=== PATIENT | male | born 1995 | race Caucasian/White ===

== ENCOUNTER 2017-04-26 21:47 | Emergency (ER) | payer OTHER ==
[~2017-04-26] VITALS: Ht 175.3 cm; Wt 63.5 kg
[2017-04-26 21:51] VITALS: BP 119/81
[2017-04-26] MEDS ORDERED: FLUORESCEIN SOD 1 MG 1 EA STRP ONE (21:51)
[2017-04-26] MEDS ORDERED: PROPARACAINE 0.5% OP 15ML BTL ONE (21:51)
--- NOTE | 2017-04-26 21:53 | ER Report ---
History and Physical Time Seen By MD: 21:48 HPI/ROS CHIEF COMPLAINT: Right eye injury HISTORY OF PRESENT ILLNESS: 21-year-old male presents ambulatory to the ER. He was playing basketball when he was poked in the right eye. He has significant eye pain. He is barely able to open due to the severity of the pain. He has vision that's intact. Grossly injected. He feels better with proparacaine drops in. Visual acuity was performed. Patient has intact vision. REVIEW OF SYSTEMS: Respiratory: No cough, no dyspnea. Cardiovascular: No chest pain, no palpitations. Gastrointestinal: No vomiting, no abdominal pain. Musculoskeletal: No back pain. Allergies: Coded Allergies: No Known Drug Allergies (Unverified , 05/14/16) Home Meds Active Scripts Oxycodone Hcl/Acetaminophen (PERCOCET 5-325 MG TABLET) 1 Each Tablet, 1 EACH PO Q4-6H Y for PAIN, #10 Prov:TAMIKA BAEZ DO 04/26/17 Reviewed Nurses Notes: Yes Old Medical Records Reviewed: Yes Hx Substance Use Disorder: No Constitutional Vital Sign - Last 24 Hours 04/26/17 21:51 Temp 97.9 Pulse 76 Resp 18 B/P (MAP) 119/81 Pulse Ox 93 O2 Delivery Room Air Physical Exam General appearance: Alert no distress. Visual acuity noted HEENT: Patient has injected right eye. Pupils responsive. Fluoresceins instilled. There is a large corneal abrasion approximately 8 mm across in the central cornea region. Respiratory: Chest is non tender, lungs are clear to auscultation. Cardiac: Regular rate and rhythm DIFFERENTIAL DIAGNOSIS: After history and physical exam differential diagnosis was considered for corneal abrasion, eye contusion, Medical Decision Making ED Course/Re-evaluation ED Course Patient was admitted to an examination room. H&P was done. The differential diagnoses was considered. On clinical examination. Patient is a large corneal abrasion on his right cornea. Patient recovered Tobrex drops. He's advised to follow-up with ophthalmology in 2 days. Patient was given a limited supply of Percocet for temporary pain relief. He is advised to use primarily ibuprofen. Decision to Disposition Date: Apr 26, 2017 Decision to Disposition Time: 21:59 Depart Departure Latest Vital Signs Vital Signs Date Time Temp Pulse Resp B/P (MAP) Pulse Ox O2 Delivery O2 Flow Rate FiO2 04/26/17 21:51 97.9 76 18 119/81 93 Room Air Impression: Primary Impression: Corneal abrasion, right Condition: Improved Disposition: HOME OR SELF-CARE Referrals: ORLIN VAUGHN MD New Scripts Oxycodone Hcl/Acetaminophen (PERCOCET 5-325 MG TABLET) 1 Each Tablet 1 EACH PO Q4-6H Y for PAIN, #10 Prov: TAMIKA BAEZ DO 04/26/17 Patient Instructions: Corneal Abrasion (ED) Additional Instructions: Take ibuprofen 200 mg 3 tablets 3 times a day with food Use Tobrex drops 1-2 drops 3 times a day Use Percocet as needed for severe pain relief one tablet every 4 hours Follow-up with ophthalmology, Dr. Orlin Reyna, geochemical manager,( his information is provided ) in 1-2 days for recheck Problem Qualifiers Primary Impression: Corneal abrasion, right Encounter type: initial encounter Qualified Codes: S05.01XA - Injury of conjunctiva and corneal abrasion without foreign body, right eye, initial encounter TAMIKA BAEZ DO Apr 26, 2017 21:53
[2017-04-26] MEDS ORDERED: oxyCODONE/ACETAMIN 5/325MG TH 2 TAB/BOTTLE PO ONE (22:00)
[2017-04-26] MEDS ORDERED: TOBRAMYCIN/DEX OP SUSP 2.5 ML OS ONE (22:00)
[2017-04-26] MEDS ORDERED: OXYC-865 PO (22:00)
== END 2017-04-26 22:12 | disposition home or self-care (01) ==
LOC: ER 22:00
DX: S05.01XA Injury of conjunctiva and corneal abrasion without foreign body, right eye, initial encounter (principal); Y93.67 Activity, basketball
CPT/HCPCS: 99282

== ENCOUNTER 2018-09-22 12:58 | Emergency (ER) | payer OTHER ==
[~2018-09-22 12:58] MED LIST: OXYC-865 PO
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
[2018-09-22 13:07] VITALS: BP 138/58
[2018-09-22 13:22] LABS: PLATELET COUNT, AUTOMATED 277 K/uL (150-450)
[2018-09-22] MEDS ORDERED: IOPAMIDOL 76% 100 ML INFUS BTL 100 ML ONE (13:23)
[2018-09-22 14:10] LABS: INR 1.06
--- NOTE | 2018-09-22 14:11 | RADIOLOGY IMAGING REPORT ---
FACILITY: [facility] - [place] PATIENT NAME: Michael Dudley : 1995 MR: [id number] V: [id number] EXAM DATE: ORDERING PHYSICIAN: BARI TUTTLE TECHNOLOGIST: Location: [facility] [place] Patient: Michael Dudley : 1995 Visit/Account:[id number] Date of Sevice: 09/22/2018 EXAMINATION: CT head without IV contrast HISTORY: Pain COMPARISON: None. TECHNIQUE: Contiguous axial images were obtained from the skull base to the vertex without intraven ous contrast. Sagittal and coronal reformatted images are also submitted. One of the following dose optimization techniques was utilized in the performance of this exam: Autom ated exposure control; adjustment of the mA and/or kV according to the patient's size; or use of an i terative reconstruction technique. Specific details can be referenced in the facility's radiology C T exam operational policy. FINDINGS: Brain volume: Normal. Ventricles: Normal. Acute ischemic changes: None. Hemorrhage: None. Masses/edema: None. Higgins-white: Negative. White matter: Normal. Vessels: Negative. Extra-axial: Negative. Calvarium/scalp: Negative. Skull base/visualized face: Negative. Visualized sinuses/orbits: Negative. IMPRESSION: No acute intracranial findings. Report Dictated By: NELIDA CHEN at 09/22/2018 2:02 PM Report E-Signed By: NELIDA CHEN at 09/22/2018 2:05 PM WSN:[email or web address]
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
--- NOTE | 2018-09-22 14:55 | RADIOLOGY IMAGING REPORT ---
FACILITY: [facility] - [place] PATIENT NAME: Michael Dudley : 1995 MR: [id number] V: [id number] EXAM DATE: ORDERING PHYSICIAN: BARI TUTTLE TECHNOLOGIST: [place] [facility] [place] Dud[place] : 1995 Visit/Account:[id number] Date of Sevice: 09/22/2018 EXAMINATION: CT cervical spine without IV contrast HISTORY: Neck pain COMPARISON: None. TECHNIQUE: Axial images were obtained from the skull base through the upper thoracic spine without I V contrast administration. Coronal and sagittal reformatted images were obtained from the axial [facility] e data. One of the following dose optimization techniques was utilized in the performance of this exam: Autom ated exposure control; adjustment of the mA and/or kV according to the patient's size; or use of an i terative reconstruction technique. Specific details can be referenced in the facility's radiology C T exam operational policy. FINDINGS: Alignment: Normal. Cranio-cervical junction: Subtle asymmetric widening of the right occiput/C1 joint, likely related to the slightly aberrant morphology of the right lateral mass of C1. Vertebral bodies: Negative. Posterior elements: Negative. Hardware: None. Disc Spaces: Negative. Soft tissues: Prominent jugular chain lymph nodes bilaterally. Visualized upper chest: Negative. IMPRESSION: No acute fracture of the cervical spine. Report Dictated By: NELIDA CHEN at 09/22/2018 2:33 PM Report E-Signed By: NELIDA CHEN at 09/22/2018 2:47 PM WSN:[email or web address]
== END 2018-09-22 15:05 | disposition home or self-care (01) ==
LOC: ER 13:01
DX: M54.2 Cervicalgia (principal); M54.6 Pain in thoracic spine; R79.89 Other specified abnormal findings of blood chemistry
CPT/HCPCS: 36415; 70450; 71260; 72125; 74177; 80320; 83605; 83690; 85025; 85610; 85730; 99283; L0172; Q9967; 82040; 82247; 82310; 82374; 82435; 82565; 82947; 84075; 84132; 84155; 84295; 84450; 84460; 84520; 99284